=== PATIENT | male | born 1985 | race Caucasian/White ===

== ENCOUNTER 2017-01-18 21:13 | Emergency (ER) | payer OTHER ==
[~2017-01-18] VITALS: Ht 177.8 cm; Wt 80.0 kg
[2017-01-18] MEDS ORDERED: KEFLEX500 MG PO (23:24)
[2017-01-18] MEDS ORDERED: MOTRIN600 MG PO (23:24)
[2017-01-18 23:40] VITALS: BP 124/76
== END 2017-01-18 23:40 | disposition home or self-care (01) ==
LOC: EME 21:13
DX: S91.332A Puncture wound without foreign body, left foot, initial encounter (principal); W26.8XXA Contact with other sharp object(s), not elsewhere classified, initial encounter; Y93.H9 Activity, other involving exterior property and land maintenance, building and construction; Y92.007 Garden or yard of unspecified non-institutional (private) residence as the place of occurrence of the external cause; F17.200 Nicotine dependence, unspecified, uncomplicated
CPT/HCPCS: 73630; 99281; 99283; J0696